=== PATIENT | male | born 1985 | race Caucasian/White ===

== ENCOUNTER 2016-06-29 08:12 | Emergency (ER) | payer OTHER ==
[~2016-06-29] VITALS: Ht 182.9 cm; Wt 84.5 kg
[2016-06-29] MEDS ORDERED: PROMETHAZINE 25 MG/ML, 1ML ONE (08:46)
[2016-06-29] MEDS ORDERED: ONDANSETRON 2MG/ML, 2ML IVPush ONE (09:00)
[2016-06-29] MEDS ORDERED: MORPHINE SULFATE 4 MG/ML, 1ML ONE ×2 (09:00→10:53)
[2016-06-29] MEDS ORDERED: SODIUM CHLORIDE FLUSH 10ML SYR IVF ONE (09:00)
[2016-06-29] MEDS ORDERED: SODIUM CHLORIDE 0.9% 1,000ML IVBOLUS ONE (09:00)
[2016-06-29] MEDS ORDERED: PROMETHAZINE 25 MG/ML, 1ML IM ONE (09:00)
[2016-06-29] MEDS ORDERED: ONDANSETRON 2MG/ML, 2ML ONE (09:01)
[2016-06-29] MEDS: MORPHINE SULFATE 4 MG/ML, 1ML IVPush PRN ×2 (09:05→10:55)
[2016-06-29 09:16] LABS: BLOOD UREA NITROGEN 6 mg/dL (7-18)
[2016-06-29 09:19] LABS: ASPARTATE AMINO TRANSFERASE 18 U/L (15-37)
[2016-06-29] MEDS ORDERED: OMNIPAQUE 350 MG/ML, 100ML BOTTLE ONE (10:23)
[2016-06-29 10:56] VITALS: BP 116/92
[2016-06-29] MEDS ORDERED: MAALOX/HYOSCYAMINE/LIDOCAINE 45 ML BOTTLE ONE (11:39)
[2016-06-29] MEDS ORDERED: MAALOX/HYOSCYAMINE/LIDOCAINE 45 ML BOTTLE PO ONE (12:00)
== END 2016-06-29 11:46 | disposition home or self-care (01) ==
LOC: ED 09:20
DX: K29.00 Acute gastritis without bleeding (principal); R11.2 Nausea with vomiting, unspecified
CPT/HCPCS: 36415; 74177; 80053; 81001; 83690; 85025; 86677; 87086; 96361; 96372; 96374; 96375; 96376; 99285; J2405; J2550; J7030; Q9967